=== PATIENT | male | born 1985 | race Two or more races ===

== ENCOUNTER 2021-09-20 23:28 | Emergency (ER) | payer OTHER ==
[~2021-09-20] VITALS: Ht 175.3 cm; Wt 79.4 kg
[2021-09-21] MEDS ORDERED: POLY119PG PO (07:17)
[2021-09-21] MEDS ORDERED: ANUSOL-HC25 MG RECTAL (07:17)
== END 2021-09-21 07:36 ==
LOC: ER 23:28
DX: K62.5 Hemorrhage of anus and rectum (principal); Z88.0 Allergy status to penicillin

== ENCOUNTER 2021-12-06 07:54 | Outpatient (CLI) | payer OTHER ==
[~2021-12-06 07:54] MED LIST: ANUSOL-HC25 MG RECTAL; POLY119PG PO
== END 2021-12-06 07:55 | disposition home or self-care (01) ==
LOC: SONOGRAMA 07:54
PROVIDERS: ATTEND Family Medicine
DX: R10.84 Generalized abdominal pain (principal)

== ENCOUNTER 2022-07-23 10:27 | Outpatient (CLI) | payer OTHER | END 2022-07-23 10:39 | disposition home or self-care (01) | LOC: RAD 10:27 | DX: K59.09 Other constipation (principal) ==

== ENCOUNTER 2022-09-23 08:55 | Outpatient (CLI) | payer OTHER | END 2022-09-23 09:01 | disposition home or self-care (01) | LOC: RAD 08:55 | DX: R10.84 Generalized abdominal pain (principal) ==

== ENCOUNTER → 2023-01-09 | Outpatient (CLI) | payer OTHER | END | disposition home or self-care (01) | LOC: TOM 08:53 | DX: J01.90 Acute sinusitis, unspecified (principal); R06.83 Snoring ==

== ENCOUNTER 2023-02-17 08:51 | Outpatient (CLI) | payer OTHER | END 2023-02-17 08:58 | disposition home or self-care (01) | LOC: TOM 08:51 | DX: J01.40 Acute pansinusitis, unspecified (principal) ==

== ENCOUNTER 2023-12-25 14:37 | Outpatient (CLI) | payer OTHER | END 2023-12-25 14:42 | disposition home or self-care (01) | LOC: RAD 14:37 | PROVIDERS: ATTEND Family Medicine | DX: M54.2 Cervicalgia (principal) ==

== ENCOUNTER 2025-03-21 11:38 | Outpatient (CLI) | payer OTHER | END 2025-03-21 11:43 | disposition home or self-care (01) | LOC: RAD 11:38 | DX: M72.2 Plantar fascial fibromatosis (principal) ==

== ENCOUNTER 2025-04-26 10:55 | Emergency (ER) | payer OTHER ==
[~2025-04-26] VITALS: Ht 175.3 cm; Wt 79.4 kg
[2025-04-26] MEDS ORDERED: DEXAMETHASONE SODIUM PHOSPHATE 4 MG/ML VIAL IM STA (11:36)
[2025-04-26] MEDS ORDERED: KETOROLAC TROMETHAMINE 30 MG VIAL IM STA (11:36)
[2025-04-26] MEDS ORDERED: DEXAMETHASONE SODIUM PHOSPHATE 4 MG/ML VIAL ONE (12:50)
[2025-04-26] MEDS ORDERED: KETOROLAC TROMETHAMINE 30 MG VIAL ONE (12:50)
[2025-04-26 13:20] LABS: BASO % 0.9 % (0.1-1.2); EOS # 0.06 (0.04-0.54); EOS % 0.9 % (0.7-7.0); LYMPH # 1.55 (1.18-3.74); LYMPH % 22.3 % (19.3-53.1); MEAN PLATELET VOLUME 10.10 fl (9.4-12.4); MONO # 0.42 (0.24-0.82); MONO % 6.0 % (4.7-12.5); NEUT # 4.84 (1.56-6.13); NEUT % 69.5 % (34.0-71.1); RED CELL DISTRIBUTION WIDTH 11.9 % (11.6-14.4)
[2025-04-26 13:45] LABS: BUN CREA RATIO 17.0 (7.0-25.0); CREATININE SERUM 0.87 mg/dL (0.70-1.30); GFR 96.7; GLUCOSE FASTING 92.0 mg/dL (65-100); OSMOLALITY SERUM 280.0 MOSM/KG (275-295)
[2025-04-26 13:51] LABS: INR 1.05
== END 2025-04-26 15:05 | disposition home or self-care (01) ==
LOC: ER 10:55
PROVIDERS: General Practice
DX: M94.0 Chondrocostal junction syndrome [Tietze] (principal); R07.89 Other chest pain; Z88.0 Allergy status to penicillin
CPT/HCPCS: 36415; 71045; 93005; 96372; 99283; J1100; J1885